=== PATIENT | female | born 1995 ===

== ENCOUNTER 2016-03-27 14:24 | Emergency (ER) | payer BC ==
[2016-03-27] MEDS ORDERED: Albuterol/Ipratropium NEB.SOL* Albuterol 2.5 MG/Ipratropium 0.5 MG 3 ML INH ONE (15:28)
--- NOTE | 2016-03-27 15:34 | UC ---
Respiratory Complaint HPI - HPI Summary HPI Summary: 20 year old female with complaints of harsh cough, nasal congestion and sore throat x 10 days. States she is not getting better and is now feeling low energy. Denies chest pain or difficulty breathing. Nasal mucus has turned to green color Denies fever Heavy everyday smoker - History of Current Complaint Chief Complaint: UCRespiratory Stated Complaint: UPPER RESPIRATORY Time Seen by Provider: 03/27/16 15:04 Hx Obtained From: Patient Hx Last Menstrual Period: Depo-Provera ?: No Onset/Duration: Gradual Onset, Lasting Days - 10, Still Present Timing: Constant Severity Initially: Mild Severity Currently: Moderate Character: Cough: Nonproductive Aggravating Factors: Exertion, Deep Breaths, Recumbent Position Associated Signs And Symptoms: Positive: Dyspnea, Wheezing, URI, Nasal Congestion, Sinus Discomfort. Negative: Fever, Chills, Pleuritic Chest Pain, Hemoptysis, Dizziness, Calf Pain, Calf Swelling, Edema, Hoarseness - Risk Factors Pulmonary Embolism Risk Factors: Smoking Cardiac Risk Factors: Smoking Pseudomonas Risk Factors: Negative Tuberculosis Risk Factors: Smoking - Allergies/Home Medications Allergies/Adverse Reactions: Allergies Allergy/AdvReac Type Severity Reaction Status Date / Time Latex Allergy Rash Verified 03/27/16 15:06 Home Medications: Home Medications Dextromethorphan Polistirex [Delsym Cough Childrens] 60 mg PO Q12H PRN 03/27/16 [History Confirmed 03/27/16] medroxyPROGESTERone ACETATE* [DEPO-Provera] 150 mg IM SEE INSTRUCTIONS 03/27/16 [History Confirmed 03/27/16] PMH/Surg Hx/FS Hx/Imm Hx Previously Healthy: Yes Endocrine History Of: Denies: Diabetes Cardiovascular History Of: Denies: Cardiac Disorders Respiratory History Of: Reports: Bronchitis Denies: Asthma - Surgical History Surgical History: None - Family History Known Family History: Positive: Diabetes - mother Negative: Hypertension - Social History Occupation: Unemployed Lives: With Family Alcohol Use: Occasionally Substance Use Type: None Smoking Status (MU): Light Every Day Tobacco Smoker Type: Cigarettes Amount Used/How Often: 1/3 PPD Length of Time of Smoking/Using Tobacco: 4 Years Have You Smoked in the Last Year: Yes Household Exposure Type: Cigarettes Cessation Counseling: Counseled 3+Min - 10 Min - she states she does not want to quit - Immunization History Most Recent Influenza Vaccination: Not the 2015/2016 Season Review of Systems Constitutional: Fatigue Skin: Negative Eyes: Negative ENT: Sore Throat, Nasal Discharge Respiratory: Cough Cardiovascular: Negative Gastrointestinal: Negative Genitourinary: Negative Motor: Negative Neurovascular: Negative Musculoskeletal: Negative Neurological: Headache - sinus Psychological: Negative All Other Systems Reviewed And Are Negative: Yes Physical Exam Triage Information Reviewed: Yes Appearance: No Pain Distress, Well-Nourished, Ill-Appearing - mildly Vital Signs: Initial Vital Signs Temp 99 F 03/27/16 15:07 Pulse 86 03/27/16 15:07 Resp 16 03/27/16 15:07 BP 122/74 03/27/16 15:07 Pulse Ox 99 03/27/16 15:07 Vital Signs Reviewed: Yes Eyes: Positive: Conjunctiva Clear. Negative: Discharge ENT: Positive: Hearing grossly normal, Pharynx normal, Nasal congestion - white , Nasal drainage, TMs normal, Other: - maxillary sinus pain with palpation Neck: Positive: Supple, Nontender, Enlarged Nodes @ - bilateral ac Respiratory: Positive: Decreased breath sounds, Wheezing - scattered throughout Cardiovascular: Positive: RRR, No Murmur Musculoskeletal: Positive: Strength Intact, ROM Intact, No Edema Neurological: Positive: Alert, Muscle Tone Normal Psychological: Positive: Age Appropriate Behavior - pleasant and cooperative Skin: Negative: rashes, breakdown UC Diagnostic Evaluation - Laboratory O2 Sat by Pulse Oximetry: 99 Respiratory Course/Dx - Course Course Of Treatment: duo nebulizer - increased air movement and decreased wheezing - Differential Dx/Diagnosis Differential Diagnosis/HQI/PQRI: Bronchitis, Sinusitis Provider Diagnoses: Acute bronchitis. Smoker Discharge - Discharge Plan Condition: Stable Disposition: HOME Prescriptions: Albuterol HFA INHALER* [Ventolin HFA Inhaler*] 1 - 2 puff INH Q4H PRN #1 mdi PRN Reason: cough or wheezing Azithromycin TAB* [Zithromax TAB (Z-DELVIS)*] 250 mg PO .Z-DELVIS INSTRUCTIONS #6 tab predniSONE TAB* [Deltasone TAB*] 40 mg PO DAILY #10 tab Patient Education Materials: Acute Bronchitis (ED), Cigarette Smoking and Your Health (GEN)
== END 2016-03-27 16:21 | disposition home or self-care (01) ==
LOC: UCCORT 14:24
DX: J20.9 Acute bronchitis, unspecified (principal); F17.210 Nicotine dependence, cigarettes, uncomplicated
CPT/HCPCS: 94640; 99202; A9270-GY; G0463